=== PATIENT | male | born 1970 | race Caucasian/White ===

== ENCOUNTER 2020-07-15 10:17 | Emergency (ER) | payer BC, SELFPAY ==
[2020-07-15 10:40] VITALS: BP 135/82; PULSE 74; RESP 18; TEMP 36.4; O2SAT 88; BMI 31.5
--- NOTE | 2020-07-15 10:46 | CT_ITS ---
WS: [id number] CT CHEST ANGIOGRAPHY WITH REFORMATS HISTORY: dyspnea/post covid TECHNIQUE: Contiguous axial images are obtained through the chest during arterial injection of intrav enous contrast. Images are reconstructed to evaluate the pulmonary arteries. MIP imaging also reviewe d. All CT scans at [facility] use at least one of these dose optimization techniques: aut omated exposure control; mA and/or kV adjustment per patient size (includes targeted exams where dose is matched to clinical indication); or iterative reconstruction. CONTRAST: Omnipaque 350; 95 mL IV. DLP: 614.77 mGy.cm COMPARISON: None available. Good opacification of the pulmonary arteries. No pulmonary embolism. Normal size pulmonary artery. No rmal-sized thoracic aorta. Cardiac chambers are top normal size. No pericardial or pleural effusion. Multilobar, bilateral peripheral and predominantly basilar opacifications. Predominantly groundglass attenuation with a few areas of more consolidated opacifications. Typical appearance for Covid 19. No pneumothorax. Mildly prominent bilateral hilar and mediastinal lymph nodes. Probably reactive on the basis of Covid 19. The largest lymph node at the RIGHT hilum measures 10 mm. A small hiatal hernia. Mild hepatic steatosis. Adrenal glands are negative. Accessory renal artery on the LEFT. No osteoblastic or osteolytic bone disease. CT/CT angio chest PE protcl [id number] IMPRESSION: 1. No pulmonary embolism. 2. Moderate bilateral, multilobar opacifications consistent with a history of Covid. 3. Mild reactive lymphadenopathy. 4. Mild cardiomegaly.
--- NOTE | 2020-07-15 10:56 | W.ED.COVID ---
HPI - COVID General: Chief Complaint: COVID symptoms Stated Complaint: COVID + LOW STAT LEVELS, SENT FROM Time Seen by Provider: 07/15/20 10:29 Triage information: Has fever, cough or shortness of breath. Exposure to COVID + person last 14 days History of Present Illness: HPI Narrative: 49-year-old male presents emergency room who is known Covid positive tested +12 days ago today was seen in follow-up and reportedly had sats in the 80s primary care doctor's office and was referred here nursing staff here noted the same sat finding when moving and shot patient from a wheelchair to the examination gurney in the room. It improves the upper 90s at 2 L by nasal cannula. Patient denies any chest pain he is not have any anosmia denies any diarrhea or vomiting. MD complaint: known COVID positive Prior testing date: 07/04/20 COVID 19 common symptoms: positive fever(s), chills, cough, non-productive cough, dyspnea, fatigue, body aches, headache(s), throat pain, nasal congestion, nausea and vomiting COVID 19 other sytmptoms: positive requiring more oxygen; negative chest pain Onset (ago): day(s) (+12) Treatment prior to arrival: none COVID Results: No Data to Display Review of Systems Const: Reports: fever(s), chills, body aches and fatigue ENMT: Reports: throat pain and nasal congestion Card: Denies: chest pain, edema, dyspnea on exertion or orthopnea Resp: Reports: dyspnea and non-productive cough GI: Reports: nausea and vomiting : Denies: flank pain, dysuria, urinary frequency or urinary urgency Skin/Breast: Denies: rash or pruritus Neuro: Reports: headache(s) PFS ED PFSH: Social History Smoking and tobacco status: never smoked Alcohol intake: never Substance/Drug Use: never Physical Exam Const: COMMON NORMALS: no acute distress GENERAL APPEARANCE: cooperative and comfortable ORIENTATION/CONSCIOUSNESS: Yes awake, Yes oriented to person, Yes oriented to place and Yes oriented to time HENMT: COMMON NORMALS: normocephalic, atraumatic and hearing grossly normal bilaterally HEAD & SCALP: normocephalic and atraumatic Neck/C-Spine: COMMON NORMALS: no JVD Resp: COMMON NORMALS: normal respiratory effort, No retractions, No use of accessory muscles and clear to auscultation bilaterally AUSCULTATION: clear to auscultation bilaterally Cardio: COMMON NORMALS: no JVD, regular rate, regular rhythm and No murmurs present (Cardio) RATE: regular rate RHYTHM: regular rhythm GI: COMMON NORMALS: Soft to palpation and No hepatosplenomegaly present AUSCULTATION: Yes normoactive bowel sounds PALPATION: Yes Soft to palpation, No Tenderness to palpation present (GI), No Guarding due to palpation present (GI) and Yes No hepatosplenomegaly present Extremity: COMMON NORMALS: normal to inspection, capillary refill normal, no clubbing, cyanosis or edema, no calf tenderness and no pedal edema Neuro: SENSORIUM/ORIENTATION: Yes oriented to person, Yes oriented to place and Yes oriented to time Skin: COMMON NORMALS: no rashes or lesions noted GENERAL SKIN EXAM: no rashes or lesions noted Course Vital Signs: Vital signs: Vital Signs Temperature 97.5 F L 07/15/20 10:40 Pulse Rate 52 L 07/15/20 12:16 Respiratory Rate 21 H 07/15/20 12:16 Blood Pressure 117/82 07/15/20 12:16 Pulse Oximetry 91 07/15/20 12:51 MDM - COVID MDM Narrative: Medical decision making narrative: Discharge on home O2 with an O2 sat monitor. Return if has further problems follow-up with primary care. Lab Data: Labs: Lab Results 07/15/20 07/15/20 07/15/20 Range/Units 11:22 11:22 11:22 WBC 4.6 (4.0-10.0) 10^3/ uL RBC 4.76 (4.1-5.3) 10^6/u L Hgb 14.3 (11.7-16.6) g/dL Hct 42.3 (42.0-52.0) % MCV 88.9 (80-94) fL MCH 30.0 (28.0-34.0) pg MCHC 33.8 (30.0-36.0) g/dL RDW 11.9 L (12.1-15.1) % Plt Count 230 (130-400) 10^3/c mm MPV 9.0 (7.4-10.4) fL Neut % (Auto) 61.0 % Lymph % (Auto) 28.3 % [place] % (Auto) 10.5 % Eos % (Auto) 0.0 % Baso % (Auto) 0.0 % Neut # (Auto) 2.78 (1.8-7.7) 10^3/u L Lymph # (Auto) 1.3 (0.8-4.8) 10^3/u L [place] # (Auto) 0.5 (0.2-0.9) 10^3/u L Eos # (Auto) 0.0 (0.0-0.8) 10^3/u L Baso # (Auto) 0.0 (0.0-0.1) 10^3/u L Nucleated RBC % (a uto) 0 % Nucleated RBCs # 0.0 /100WBC D-Dimer 0.48 (0-0.59) ug/mIFE U Sodium 135 L (136-145) mmol/L Potassium 3.9 (3.5-5.1) mmol/L Chloride 98 (98-107) mmol/L Carbon Dioxide 27 (22-29) mmol/L Anion Gap 13.9 (5-19) BUN 19 (6-20) mg/dL Creatinine 0.5 L (0.7-1.2) mg/dL GFR Calculation 176.7 H (90-130) mL/min Glucose 129 H (65-115) mg/dL Calculated Osmolal ity 284 L (285-295) mOsm/k g Calcium 8.3 L (8.5-10.5) mg/dL Total Bilirubin 0.6 (0.15-1.2) mg/dL AST 29 (0-40) U/L ALT 37 (0-41) U/L Alkaline Phosphata se 122 (40-130) IU/L Total Protein 6.7 (6.6-8.7) g/dL Albumin 3.7 (3.5-5.2) g/dL Globulin 3.0 (1.3-4.6) g/dL COVID Results: No Data to Display Discharge Plan Discharge Patient Disposition: Home Clinical Impression: Pneumonia due to 2019-nCoV, Hypoxia Condition: Stable Prescriptions: New dexamethasone 6 mg tablet 6 mg PO DAILY Qty: 7 RF: 0 albuterol sulfate 90 mcg/actuation HFA aerosol inhaler 2 inh INHALATION Q4H PRN (Reason: shortness of breath or wheezing) Qty: 18 RF: 0 Discharge Orders: Discharge ED (Routine); Ordered 07/15/20 Ordered By: Olayinka Garcia Other Ambulatory Orders: DME: Oxygen (Order) Location: None Selected Ordered By: Olayinka Garcia Discharge Diet: Usual diet Discharge Activity: Increase activity as tolerated Patient Instructions: Opioid Safety Activity Restrictions/Additional Instructions: We will start you on home oxygen at 2 L/min. We will also add dexamethasone. To follow-up with your primary care doctor within 1 week to reevaluate. Return if you have further problems. You also given home oxygen saturation monitor if saturations fall below 92% while on oxygen return to the emergency room. Coding Level of Care Code ED Software Development Test Engineer for Debbie Hull Exam Comprehensive
[2020-07-15] MEDS: iohexol 350 mg/mL 100 mL Btl IV (11:12)
[2020-07-15 11:49] VITALS: O2SAT 89
[2020-07-15 11:50] LABS: Hematocrit 42.3 % (42.0-52.0); Hemoglobin 14.3 g/dL (11.7-16.6); Lymphocytes # 1.3 10^3/uL (0.8-4.8); Lymphocytes % 28.3 %; Mean Corpuscular HGB Conc 33.8 g/dL (30.0-36.0); Mean Corpuscular Volume 88.9 fL (80-94); Monocytes # 0.5 10^3/uL (0.2-0.9); Monocytes % 10.5 %; Neutrophils # 2.78 10^3/uL (1.8-7.7); Nucleated Red Blood Cells % 0 %; Platelet Count 230 10^3/cmm (130-400); Red Blood Count 4.76 10^6/uL (4.1-5.3); Red Cell Distribution Width 11.9 % (12.1-15.1); White Blood Count 4.6 10^3/uL (4.0-10.0)
[2020-07-15 11:59] LABS: D Dimer 0.48 ug/mIFEU (0-0.59)
[2020-07-15 12:02] LABS: Alanine Aminotransferase 37 U/L (0-41); Albumin Level 3.7 g/dL (3.5-5.2); Alkaline Phosphatase 122 IU/L (40-130); Anion Gap 13.9 (5-19); Aspartate Amino Transferase 29 U/L (0-40); Blood Urea Nitrogen 19 mg/dL (6-20); Calcium 8.3 mg/dL (8.5-10.5); Carbon Dioxide 27 mmol/L (22-29); Chloride 98 mmol/L (98-107); Glomerular Filtration Rate 176.7 mL/min (90-130); Glucose 129 mg/dL (65-115); Osmolality Calculated 284 mOsm/kg (285-295); Potassium 3.9 mmol/L (3.5-5.1); Sodium 135 mmol/L (136-145); Total Bilirubin 0.6 mg/dL (0.15-1.2); Total Protein 6.7 g/dL (6.6-8.7)
[2020-07-15] MEDS: dexamethasone 4 mg/mL INJ 10 MG IVP (12:06)
[2020-07-15 12:16] VITALS: BP 117/82; PULSE 52; RESP 21; O2SAT 99
[2020-07-15 12:51] VITALS: O2SAT 88; O2SAT 91; O2SAT 93
[2020-07-15 12:57] VITALS: BP 125/84; PULSE 50; RESP 21; TEMP 36.9; O2SAT 95
--- NOTE | 2020-07-16 10:14 | DCPLANNER ---
is/it project manager had message to schedule a follow up appointment for patient with primary care. is/it project manager spoke with patient, offered to help get him established with a primary care physician. Patient stated that his , [place] [facility] [place] management needs at this time.
== END 2020-07-15 14:11 | disposition home or self-care (01) ==
PROVIDERS: Emergency Provider Family Medicine
DX: U07.1 COVID-19 (principal); J12.82 Pneumonia due to coronavirus disease 2019; R09.02 Hypoxemia
CPT/HCPCS: 71275; 80053; 85025; 85378; 96374; 99284; J1100; Q9967